=== PATIENT | female | born 1955 | race Caucasian/White ===

== ENCOUNTER 2021-01-11 12:19 | Outpatient (CLI) | payer MEDICARE, BC | END 2021-01-11 12:20 | disposition home or self-care (01) | LOC: CSHCT 12:19 | PROVIDERS: ATTEND Internal Medicine Critical Care Medicine | DX: R91.1 Solitary pulmonary nodule (principal); J44.9 Chronic obstructive pulmonary disease, unspecified; R05 Cough; J18.9 Pneumonia, unspecified organism; N28.89 Other specified disorders of kidney and ureter | CPT/HCPCS: 71260; 82565 ==